=== PATIENT | male | born 1985 | race Caucasian/White ===

== ENCOUNTER 2018-04-15 02:46 | Emergency (ER) | payer OTHER ==
[~2018-04-15] VITALS: Ht 172.7 cm; Wt 104.3 kg
[2018-04-15 02:46] VITALS: BP_SYST 151
[2018-04-15 03:00] VITALS: BP_SYST 151
== END 2018-04-15 02:50 ==
LOC: SED 02:46
DX: Z02.83 Encounter for blood-alcohol and blood-drug test (principal)